=== PATIENT | male | born 2005 | race Two or more races ===

== ENCOUNTER 2025-03-28 11:51 | Emergency (ER) | payer MEDICAID, OTHER ==
[~2025-03-28] VITALS: Ht 175.3 cm; Wt 75.0 kg
[2025-03-28 11:54] VITALS: TEMP 98.3
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
[2025-03-28] MEDS ORDERED: NAPR-746 PO (13:49)
[2025-03-28] MEDS ORDERED: CEPH500C PO (13:49)
[2025-03-28 14:04] VITALS: BP 127/79; PULSE 79; RESP 18; O2SAT 96
== END 2025-03-28 14:04 | disposition home or self-care (01) ==
LOC: ER 11:51
DX: S91.312A Laceration without foreign body, left foot, initial encounter (principal); W25.XXXA Contact with sharp glass, initial encounter; Y93.89 Activity, other specified; Y92.89 Other specified places as the place of occurrence of the external cause; Y99.8 Other external cause status
CPT/HCPCS: 12002